=== PATIENT | female | born 1955 | race Caucasian/White ===

== ENCOUNTER → 2017-01-19 | Outpatient (CLI) | payer OTHER ==
[2017-01-19 08:40] LABS: BLOOD UREA NITROGEN 26 mg/dL (7-18)
[2017-01-19 08:43] LABS: ASPARTATE AMINO TRANSFERASE 18 U/L (15-37)
[2017-01-19 10:05] LABS: TOTAL IRON BINDING CAPACITY 324 mcg/dL (250-450)
== END | disposition home or self-care (01) ==
LOC: LAB 08:15
PROVIDERS: ATTEND Internal Medicine Cardiovascular Disease
DX: E78.5 Hyperlipidemia, unspecified (principal); I25.10 Atherosclerotic heart disease of native coronary artery without angina pectoris; R73.9 Hyperglycemia, unspecified
CPT/HCPCS: 36415; 80053; 80061; 83036; 83540; 83550; 85025

== ENCOUNTER → 2017-03-28 | Outpatient (CLI) | payer OTHER ==
[~2017-03-28] MED LIST: REGADENOSON 0.4 MG/5 ML SYRINGE ONE
== END | disposition home or self-care (01) ==
LOC: CFH 07:44
PROVIDERS: ATTEND Internal Medicine Cardiovascular Disease
DX: I25.10 Atherosclerotic heart disease of native coronary artery without angina pectoris (principal)
CPT/HCPCS: 78452; 93017; A9502; J2785

== ENCOUNTER → 2017-09-07 | Outpatient (CLI) | payer OTHER ==
[2017-09-07 11:29] LABS: HEMATOCRIT 48.2 % (34.6-47.8); HEMOGLOBIN 16.1 g/dL (11.7-16.4); WHITE BLOOD COUNT 4.5 x10^3/uL (3.4-10)
[2017-09-07 11:34] LABS: ASPARTATE AMINO TRANSFERASE 26 U/L (15-37); BLOOD UREA NITROGEN 15 mg/dL (7-18)
== END | disposition home or self-care (01) ==
LOC: LAB 11:11
PROVIDERS: ATTEND Internal Medicine Cardiovascular Disease
DX: I10 Essential (primary) hypertension (principal); E78.5 Hyperlipidemia, unspecified
CPT/HCPCS: 36415; 80053; 80061; 85025

== ENCOUNTER → 2017-09-09 | Outpatient (CLI) | payer OTHER | END | disposition home or self-care (01) | LOC: CFH 12:14 | PROVIDERS: ATTEND Internal Medicine Cardiovascular Disease | DX: R06.02 Shortness of breath (principal); N64.4 Mastodynia; I25.10 Atherosclerotic heart disease of native coronary artery without angina pectoris; R73.9 Hyperglycemia, unspecified | CPT/HCPCS: 71020; 76642; G0204 ==

== ENCOUNTER 2017-12-25 22:46 | Emergency (ER) | payer OTHER ==
[~2017-12-25] VITALS: Ht 167.6 cm; Wt 65.0 kg
[2017-12-25] MEDS ORDERED: IBUPROFEN 200 MG TABLET ONE (23:03)
[2017-12-25] MEDS ORDERED: CLOP75TA52 PO (23:11)
[2017-12-25] MEDS ORDERED: METO200T47 PO (23:11)
[2017-12-25] MEDS ORDERED: ATOR10TA9 PO (23:11)
[2017-12-25] MEDS ORDERED: ASPI-496 PO (23:11)
[2017-12-25] MEDS ORDERED: IBUPROFEN 200 MG TABLET PO ONE (23:30)
[2017-12-25] MEDS ORDERED: PLEASE ENTER ALLERGIES MC SCH (23:30)
[2017-12-25 23:31] LABS: CULTURE INDICATED? YES; MICROSCOPIC INDICATED
[2017-12-25 23:50] VITALS: BP 167/75
[2017-12-25 23:59] LABS: BASOPHILS # (AUTO) 0.02 x10^3/uL (0-0.1); BASOPHILS % (AUTO) 0 % (0-1); EOSINOPHILS # (AUTO) 0.17 x10^3/uL (0-0.4); EOSINOPHILS % (AUTO) 3 % (1-7); LYMPHOCYTES # (AUTO) 1.73 x10^3/uL (1-3.4); LYMPHOCYTES % (AUTO) 34 % (22-44); MD NO; MEAN CORPUSCULAR HEMOGLOBIN 30.9 pg (27.0-34.8); MEAN CORPUSCULAR HGB CONC 34.3 g/dL (32.4-35.8); MEAN CORPUSCULAR VOLUME 90.1 fL (80-100); MONOCYTES # (AUTO) 0.62 x10^3/uL (0.2-0.8); MONOCYTES % (AUTO) 12 % (2-9); NEUTROPHILS # (AUTO) 2.56 x10^3/uL (1.8-6.8); NEUTROPHILS % (AUTO) 50 % (42-75); PLATELET COUNT 268 x10^3/uL (130-400); RED BLOOD COUNT 4.96 x10^6/uL (3.82-5.3); RED CELL DISTRIBUTION WIDTH 12.5 % (9.6-15.2)
[2017-12-26 00:08] LABS: ANION GAP 10 mmol/L (5-15); CHLORIDE 110 mmol/L (98-107)
== END 2017-12-26 00:23 | disposition home or self-care (01) ==
LOC: ED 23:11
DX: N20.1 Calculus of ureter (principal); I25.2 Old myocardial infarction
CPT/HCPCS: 36415; 74176; 80048; 81001; 85025; 87086; 99285

== ENCOUNTER → 2018-02-20 | Outpatient (CLI) | payer OTHER ==
[~2018-02-20] MED LIST changes: +ASPI-496 PO; +ATOR10TA9 PO; +CLOP75TA52 PO; +METO200T47 PO; -REGADENOSON 0.4 MG/5 ML SYRINGE ONE
== END | disposition home or self-care (01) ==
LOC: CVU 13:11
PROVIDERS: ATTEND Internal Medicine Cardiovascular Disease
DX: R06.00 Dyspnea, unspecified (principal)
CPT/HCPCS: 93306

== ENCOUNTER 2019-09-02 13:16 | Emergency (ER) | payer OTHER ==
[~2019-09-02] VITALS: Ht 167.6 cm; Wt 67.1 kg
[2019-09-02 13:17] VITALS: BP 155/58
[2019-09-02] MEDS ORDERED: SODIUM CHLORIDE FLUSH 10ML SYR IVF ONE (13:30)
[2019-09-02] MEDS ORDERED: SODIUM CHLORIDE 0.9% 1,000ML IVBOLUS ONE (13:30)
[2019-09-02] MEDS ORDERED: KETOROLAC 30 MG/1 ML IVPush ONE (13:30)
[2019-09-02] MEDS ORDERED: PLEASE ENTER HEIGHT AND WEIGHT MC SCH (13:30)
--- NOTE | 2019-09-02 13:52 | NUR ---
307 ml urine noted with bladder scanner. aware
[2019-09-02] MEDS ORDERED: KETOROLAC 30 MG/1 ML ONE (14:05)
[2019-09-02 14:14] LABS: BASOPHILS # (AUTO) 0.02 x10^3/uL (0-0.1); BASOPHILS % (AUTO) 0 % (0-1); EOSINOPHILS # (AUTO) 0.16 x10^3/uL (0-0.4); EOSINOPHILS % (AUTO) 3 % (1-7); LYMPHOCYTES # (AUTO) 1.75 x10^3/uL (1-3.4); LYMPHOCYTES % (AUTO) 30 % (22-44); MD NO; MEAN CORPUSCULAR HEMOGLOBIN 30.8 pg (27.0-34.8); MEAN CORPUSCULAR HGB CONC 33.6 g/dL (32.4-35.8); MEAN CORPUSCULAR VOLUME 91.8 fL (80-100); MEAN PLATELET VOLUME 8.2 fL (7.4-10.4); MONOCYTES # (AUTO) 0.72 x10^3/uL (0.2-0.8); MONOCYTES % (AUTO) 12 % (2-9); NEUTROPHILS # (AUTO) 3.23 x10^3/uL (1.8-6.8); NEUTROPHILS % (AUTO) 55 % (42-75); PLATELET COUNT 279 x10^3/uL (130-400); RED BLOOD COUNT 4.74 x10^6/uL (3.82-5.3)
--- NOTE | 2019-09-02 14:14 | NUR ---
ON RETURN FROM CT MEDICATED PER ORDERS
[2019-09-02 14:24] LABS: ALBUMIN 4.1 g/dL (3.4-5.0); ANION GAP 7 mmol/L (5-15); CALCIUM 9.6 mg/dL (8.5-10.1); CHLORIDE 106 mmol/L (98-107)
[2019-09-02 14:27] LABS: ALANINE AMINOTRANSFERASE 35 U/L (12-78); ALKALINE PHOSPHATASE 82 U/L (45-117); BILIRUBIN,TOTAL 0.6 mg/dL (0.2-1.0); CREATININE 0.86 mg/dL (0.55-1.02); TOTAL PROTEIN 7.3 g/dL (6.4-8.2)
[2019-09-02] MEDS ORDERED: HYDROmorphone 1 MG/ML, 1ML INJ IV ONE (14:30)
--- NOTE | 2019-09-02 14:37 | NUR ---
URINE OBTAINED VIA STRAIGHT CATH. IV BOLUS INFUSING.
[2019-09-02 14:55] LABS: MICROSCOPIC AUTO
[2019-09-02 15:08] LABS: CULTURE INDICATED? NO
--- NOTE | 2019-09-02 15:47 | NUR ---
PAIN IMPROVED SINCE MEDICATED ALTHOUGH HAS PELVIC TYPE PRESSURE PAIN
== END 2019-09-02 15:49 | disposition home or self-care (01) ==
LOC: ED 15:13
DX: N13.2 Hydronephrosis with renal and ureteral calculous obstruction (principal); I25.2 Old myocardial infarction
CPT/HCPCS: 36415; 51701; 74176; 80053; 81001; 85025; 96374; 99284; J1885; J7030

== ENCOUNTER 2019-11-23 08:38 | Outpatient (CLI) | payer OTHER | END 2019-11-23 23:59 | disposition home or self-care (01) | LOC: CFH 08:38 | PROVIDERS: ATTEND Specialist | DX: R92.2 Inconclusive mammogram (principal); N60.41 Mammary duct ectasia of right breast | CPT/HCPCS: 76642; 77065; G0279 ==

== ENCOUNTER 2021-01-31 18:10 | Emergency (ER) | payer MEDICARE ==
[~2021-01-31] VITALS: Ht 167.6 cm; Wt 68.0 kg
[2021-01-31 18:13] VITALS: BP 165/83
--- NOTE | 2021-01-31 18:17 | NUR ---
THIS IS A 65 YO F W/ C/O CHEST WALL PAIN S/P GLF ON TUESDAY. PT REPORTS PAIN WORSE WHEN MOVING UPPR EXTREMITIES AND INSPIRATION. PT RESTING ON GURNEY W/ CALL LIGHT IN REACH AND SIDE RAILS UPX2. RESP EVEN AND UNLABORED, ANTONETTE.
--- NOTE | 2021-01-31 18:40 | NUR ---
PT TO RAD.
--- NOTE | 2021-01-31 18:50 | NUR ---
RECEIVED REPORT FROM YANY CHÁVEZ. ASSUMING CARE AT THIS TIME. PT AT IMAGING.
--- NOTE | 2021-01-31 18:58 | NUR ---
PT AMBULATED BACK TO ROOM FROM IMAGING WITH STEADY GAIT.
--- NOTE | 2021-01-31 19:18 | NUR ---
ALL RESULTS ARE BACK AT THIS TIME. CHART UP FOR RECHECK.
== END 2021-01-31 19:47 | disposition home or self-care (01) ==
LOC: ED 19:01
DX: S29.011A Strain of muscle and tendon of front wall of thorax, initial encounter (principal); R07.89 Other chest pain; I25.2 Old myocardial infarction; W01.0XXA Fall on same level from slipping, tripping and stumbling without subsequent striking against object, initial encounter; Y93.89 Activity, other specified; Y92.410 Unspecified street and highway as the place of occurrence of the external cause; Y99.8 Other external cause status
CPT/HCPCS: 71045; 99284